=== PATIENT | female | born 1950 | race Caucasian/White ===

== ENCOUNTER 2016-03-17 10:21 | Inpatient (IN) | payer MEDICARE, MEDICAID ==
[~2016-03-17] VITALS: Ht 149.9 cm; Wt 51.7 kg
[~2016-03-17 10:21] MED LIST: CLON1TAB4 PO; HYDR12.54 PO; LISI40TA4 PO; OMEP20TA2 PO
[2016-03-17 12:31] VITALS: BP 117/73
[2016-03-17] MEDS ORDERED: HALOPERIDOL 5 MG TABLET PO PRN (12:45)
[2016-03-17] MEDS ORDERED: PNEUMOCOCCAL VACCINE POLYVALENT 0.5 ML VIAL [PPSV23] IM ONE (13:15)
[2016-03-17] MEDS ORDERED: INFLUENZA VIRUS VACCINE QVS 2016-17 (3YR+)/PF 60 MCG/0.5 ML SYRINGE IM ONE (13:15)
[2016-03-17 16:10] VITALS: BP 132/64
[2016-03-17] MEDS: LORazepam 1 MG TABLET PO PRN (16:43)
[2016-03-17] MEDS ORDERED: OLANZapine 5 MG TABLET PO SCH (21:00)
[2016-03-18 00:18] VITALS: BP 94/58
[2016-03-18] MEDS ORDERED: ACETAMINOPHEN 325 MG TABLET PO PRN (07:30)
[2016-03-18 08:11] LABS: BASOPHILS # (AUTO) 0.04 K/uL (0.00-0.20); BASOPHILS % (AUTO) 0.6 % (0.0-2.0); EOSINOPHILS # (AUTO) 0.15 K/uL (0.00-0.70); EOSINOPHILS % (AUTO) 2.26 % (1.0-6.0); HEMATOCRIT 43.2 % (36-46); HEMOGLOBIN 14.6 g/dL (12.0-16.0); LYMPHOCYTES # (AUTO) 2.5 K/uL (1.0-4.8); LYMPHOCYTES % (AUTO) 38.3 % (22.0-44.0); MEAN CORPUSCULAR HEMOGLOBIN 29.6 pg (26.0-34.0); MEAN CORPUSCULAR HGB CONC 33.8 G/dL (31.0-37.0); MEAN CORPUSCULAR VOLUME 88 fL (80-100); MONOCYTES # (AUTO) 0.5 K/uL (0.1-1.0); MONOCYTES % (AUTO) 7.6 % (2.0-9.0); NEUTROPHILS # (AUTO) 3.3 K/uL (1.8-7.7); NEUTROPHILS % (AUTO) 51.2 % (40.0-70.0); PLATELET COUNT (AUTO) 309 K/uL (150-450); RED BLOOD CELL COUNT(AUTO) 4.92 MIL/uL (4.00-5.20); WHITE BLOOD COUNT (AUTO) 6.4 K/uL (4.5-11.0)
[2016-03-18 08:34] LABS: ALANINE AMINOTRANSFERASE 41 U/L (12-78); ANION GAP 6 mmol/L (8-16); ASPARTATE AMINOTRANSFERASE 29 U/L (15-37); BILIRUBIN,TOTAL 0.6 mg/dL (0.1-1.0); CALCIUM, TOTAL 8.6 mg/dL (8.8-10.5); CARBON DIOXIDE 29 mmol/L (22-29); CHLORIDE 105 mmol/L (98-107); CREATININE 0.79 mg/dL (0.60-1.30); GLOMERULAR FILTR. RATE CALC > 60 mL/min (>60); POTASSIUM 4.5 mmol/L (3.5-5.1); SODIUM SERUM 140 mmol/L (136-145); TOTAL PROTEIN, SERUM 6.2 g/dL (6.4-8.2); UREA NITROGEN, BLOOD 15 mg/dL (7-18)
[2016-03-18 08:59] VITALS: BP 104/61
[2016-03-18] MEDS ORDERED: FLUoxetine HCL 20 MG CAPSULE PO SCH (09:00)
[2016-03-18] MEDS: LISINOPRIL 20 MG TABLET PO SCH (09:00)
[2016-03-18] MEDS: HYDROCHLOROTHIAZIDE 25 MG TABLET PO SCH (09:00)
[2016-03-18] MEDS: OMEPRAZOLE 20 MG CAPSULE PO SCH (09:49)
[2016-03-18 09:50] VITALS: BP 99/69
[2016-03-18] MEDS: NICOTINE 21 MG/24 HOUR PATCH TD SCH (09:57)
[2016-03-18] MEDS: IBUPROFEN 400 MG TABLET PO PRN (13:50)
[2016-03-18 17:14] VITALS: BP 127/87
[2016-03-18] MEDS: LORazepam 1 MG TABLET PO PRN (18:55)
[2016-03-18] MEDS: ZOLPIDEM TARTRATE 10 MG TABLET PO PRN (20:43)
[2016-03-18] MEDS: OLANZapine 10 MG TABLET PO SCH (20:43)
[2016-03-19 06:05] VITALS: BP 121/79
[2016-03-19 08:03] LABS: BASOPHILS # (AUTO) 0.03 K/uL (0.00-0.20); BASOPHILS % (AUTO) 0.4 % (0.0-2.0); EOSINOPHILS % (AUTO) 1.56 % (1.0-6.0); HEMATOCRIT 42.6 % (36-46); HEMOGLOBIN 14.4 g/dL (12.0-16.0); LYMPHOCYTES # (AUTO) 2.4 K/uL (1.0-4.8); LYMPHOCYTES % (AUTO) 36.5 % (22.0-44.0); MEAN CORPUSCULAR HEMOGLOBIN 29.9 pg (26.0-34.0); MEAN CORPUSCULAR HGB CONC 33.9 G/dL (31.0-37.0); MEAN CORPUSCULAR VOLUME 88 fL (80-100); MONOCYTES # (AUTO) 0.5 K/uL (0.1-1.0); MONOCYTES % (AUTO) 7.6 % (2.0-9.0); NEUTROPHILS # (AUTO) 3.5 K/uL (1.8-7.7); NEUTROPHILS % (AUTO) 53.9 % (40.0-70.0); PLATELET COUNT (AUTO) 299 K/uL (150-450); RED BLOOD CELL COUNT(AUTO) 4.83 MIL/uL (4.00-5.20); RED CELL DISTRIBUTION WIDTH 13.2 % (11.5-14.5); WHITE BLOOD COUNT (AUTO) 6.5 K/uL (4.5-11.0)
[2016-03-19 08:04] VITALS: BP 138/86
[2016-03-19 08:16] LABS: ALANINE AMINOTRANSFERASE 37 U/L (12-78); ALBUMIN 3.1 g/dL (3.4-5.0); ANION GAP 9 mmol/L (8-16); ASPARTATE AMINOTRANSFERASE 24 U/L (15-37); BILIRUBIN,TOTAL 0.4 mg/dL (0.1-1.0); CALCIUM, TOTAL 8.2 mg/dL (8.8-10.5); CARBON DIOXIDE 27 mmol/L (22-29); CHLORIDE 105 mmol/L (98-107); CHOL/HDL RATIO 3.6 (3.9-5.7); GLOMERULAR FILTR. RATE CALC > 60 mL/min (>60); POTASSIUM 4.3 mmol/L (3.5-5.1); SODIUM SERUM 141 mmol/L (136-145); THYROID STIMULATING HORMONE 1.14 uIU/mL (0.36-3.74); TOTAL PROTEIN, SERUM 6.3 g/dL (6.4-8.2); UREA NITROGEN, BLOOD 22 mg/dL (7-18)
[2016-03-19 09:09] LABS: HEMOGLOBIN A1C 5.6 % (4.5-6.2)
[2016-03-19] MEDS: HYDROCHLOROTHIAZIDE 25 MG TABLET PO SCH (09:16)
[2016-03-19] MEDS: LISINOPRIL 20 MG TABLET PO SCH (09:16)
[2016-03-19] MEDS: OMEPRAZOLE 20 MG CAPSULE PO SCH (09:16)
[2016-03-19] MEDS: FLUoxetine HCL 20 MG CAPSULE PO SCH (09:17)
[2016-03-19] MEDS: NICOTINE 21 MG/24 HOUR PATCH TD SCH (09:24)
[2016-03-19 16:09] VITALS: BP_SYST 110; BP_SYST 116; BP_DIAS 65; BP_DIAS 74
[2016-03-19] MEDS: LORazepam 1 MG TABLET PO PRN ×2 (17:23→23:47)
[2016-03-19] MEDS: ZOLPIDEM TARTRATE 10 MG TABLET PO PRN (20:27)
[2016-03-19] MEDS: OLANZapine 10 MG TABLET PO SCH (20:27)
[2016-03-19 23:45] VITALS: BP 136/82
[2016-03-20 02:23] VITALS: BP 136/82
[2016-03-20 09:07] VITALS: BP 132/84
[2016-03-20] MEDS: LISINOPRIL 20 MG TABLET PO SCH (09:24)
[2016-03-20] MEDS: HYDROCHLOROTHIAZIDE 25 MG TABLET PO SCH (09:24)
[2016-03-20] MEDS: FLUoxetine HCL 20 MG CAPSULE PO SCH (09:24)
[2016-03-20] MEDS: NICOTINE 21 MG/24 HOUR PATCH TD SCH (09:25)
[2016-03-20] MEDS: OMEPRAZOLE 20 MG CAPSULE PO SCH (09:27)
[2016-03-20] MEDS: LORazepam 1 MG TABLET PO PRN (12:42)
[2016-03-20 16:14] VITALS: BP 129/85
[2016-03-20] MEDS: OLANZapine 10 MG TABLET PO SCH (20:27)
[2016-03-21 00:59] VITALS: BP 112/64
[2016-03-21 04:39] VITALS: BP 147/90
[2016-03-21] MEDS: LORazepam 1 MG TABLET PO PRN ×2 (04:40→13:59)
[2016-03-21] MEDS: LISINOPRIL 20 MG TABLET PO SCH (09:02)
[2016-03-21] MEDS: HYDROCHLOROTHIAZIDE 25 MG TABLET PO SCH (09:02)
[2016-03-21] MEDS: NICOTINE 21 MG/24 HOUR PATCH TD SCH (09:03)
[2016-03-21] MEDS: FLUoxetine HCL 20 MG CAPSULE PO SCH (09:03)
[2016-03-21] MEDS: OMEPRAZOLE 20 MG CAPSULE PO SCH (09:03)
[2016-03-21 09:12] VITALS: BP 135/96
[2016-03-21] MEDS: IBUPROFEN 400 MG TABLET PO PRN (13:59)
[2016-03-21 14:02] VITALS: BP 128/81
[2016-03-21 14:59] VITALS: BP 123/77
[2016-03-21 16:16] VITALS: BP 125/87
[2016-03-21] MEDS ORDERED: OLAN10TA3 PO (19:28)
[2016-03-21] MEDS ORDERED: FLUO-191 PO (19:28)
== END 2016-03-21 20:32 | disposition home or self-care (01) | DRG 885 ==
LOC: B3A 12:38 → EDSTATUS 12:43 → B2X 16:05
PROVIDERS: ADMIT Psychiatry & Neurology Psychiatry; ATTEND Psychiatry & Neurology Psychiatry
DX: F25.0 Schizoaffective disorder, bipolar type (principal); F15.20 Other stimulant dependence, uncomplicated; R45.851 Suicidal ideations; F32.9 Major depressive disorder, single episode, unspecified; I10 Essential (primary) hypertension; K21.9 Gastro-esophageal reflux disease without esophagitis; E88.09 Other disorders of plasma-protein metabolism, not elsewhere classified; Z82.49 Family history of ischemic heart disease and other diseases of the circulatory system; Z81.8 Family history of other mental and behavioral disorders; Z83.3 Family history of diabetes mellitus; Z71.51 Drug abuse counseling and surveillance of drug abuser
CPT/HCPCS: 83036; 84443